=== PATIENT | female | born 1960 | race Caucasian/White ===

== ENCOUNTER 2018-09-04 17:10 | Outpatient (REF) | payer MEDICAID, SELFPAY ==
[2018-09-04 22:18] LABS: Iron 57 ug/dL (50-175); Total Iron Binding Capacity 271 ug/dL (250-450); Transferrin Sat 21 % (15-50)
[2018-09-04 22:22] LABS: Abs Immature Grans 0.02 k/cumm (0.0-0.09); Absolute Basophil Count 0.04 k/cumm (0.0-0.2); Absolute Eosinophil Count 0.31 k/cumm (0.0-0.7); Absolute Lymphocyte Count 2.68 k/cumm (1.2-3.4); Absolute Monocyte Count 0.76 k/cumm (0.11-0.7); Absolute Neutrophil Count 5.01 k/cumm (1.2-6.7); Basophils % 0.5; Eosinophils % 3.5; HCT 44.6 % (36.0-46.0); HGB 14.5 g/dL (12.0-15.5); Immature Grans % 0.2; Lymphocytes % 30.4; Mean Corp. HGB Concentration 32.5 g/dL (32.0-36.0); Mean Corpuscular Hemoglobin 28.2 pg (27.0-33.0); Mean Corpuscular Volume 86.8 fL (80-95); Mean Platelet Volume 11.2 fL (8.0-11.0); Monocytes % 8.6; Neutrophils % 56.8; Platelet Count 341 x1000/uL (130-400); RBC 5.14 m/cumm (4.00-5.20); White Blood Cell Count 8.82 k/cumm (4.4-10.8)
[2018-09-04 23:02] LABS: Anion Gap 10.3 mmol/L (3-11); BUN 17 mg/dL (7-18); CO2 27.7 mmol/L (21.0-32.0); CREATININE 0.66 mg/dL (0.55-1.02); Calcium 9.7 mg/dL (8.5-10.1); Chloride 105 mmol/L (98-107); Ferritin 171 ng/mL (8-388); Glucose 93 mg/dL (70-100); Potassium 4.3 mmol/L (3.5-5.1); Sodium 143 mmol/L (136-145); TSH (W/Ref FT4) 1.26 uIU/mL (0.358-3.74)
== END 2018-09-04 17:30 ==
LOC: NCHCN 17:10
PROVIDERS: Visit Provider Nurse Practitioner Family
DX: R03.0 Elevated blood-pressure reading, without diagnosis of hypertension (principal); R51 Headache
CPT/HCPCS: 80048; 82728; 83540; 83550; 84443; 85025

== ENCOUNTER 2018-09-07 09:14 | Outpatient (CLI) | payer MEDICAID, SELFPAY ==
[2018-09-07 10:54] LABS: Carboxyhemoglobin 1.1 %
== END 2018-09-07 09:34 ==
PROVIDERS: PCP Nurse Practitioner Family; Visit Provider Nurse Practitioner Family
DX: R03.0 Elevated blood-pressure reading, without diagnosis of hypertension (principal); R51 Headache; R94.5 Abnormal results of liver function studies
CPT/HCPCS: 36415; 80053; 82375; 86803; 85025

== ENCOUNTER 2019-04-24 10:37 | Outpatient (REF) | payer BC, SELFPAY ==
[2019-04-24 12:50] LABS: Abs Immature Grans 0.02 k/cumm (0.0-0.09); Absolute Basophil Count 0.05 k/cumm (0.0-0.2); Absolute Eosinophil Count 0.27 k/cumm (0.0-0.7); Absolute Lymphocyte Count 2.61 k/cumm (1.2-3.4); Absolute Monocyte Count 0.47 k/cumm (0.11-0.7); Absolute Neutrophil Count 4.86 k/cumm (1.2-6.7); Basophils % 0.6; Eosinophils % 3.3; HCT 43.2 % (36.0-46.0); HGB 13.9 g/dL (12.0-15.5); Immature Grans % 0.2; Lymphocytes % 31.5; Mean Corp. HGB Concentration 32.2 g/dL (32.0-36.0); Mean Corpuscular Hemoglobin 28.3 pg (27.0-33.0); Monocytes % 5.7; Neutrophils % 58.7; Platelet Count 327 x1000/uL (130-400); RBC 4.91 m/cumm (4.00-5.20); RBC Distribution Width 13.5 % (11.7-14.6); White Blood Cell Count 8.28 k/cumm (4.4-10.8)
[2019-04-24 13:13] LABS: Iron 70 ug/dL (50-175); Total Iron Binding Capacity 248 ug/dL (250-450); Transferrin Sat 28 % (15-50)
[2019-04-24 13:14] LABS: ALT 46 U/L (12-78); AST 18 U/L (15-37); Albumin 3.8 g/dL (3.4-5.0); Alkaline Phosphatase 103 U/L (46-116); Anion Gap 7.5 mmol/L (3-11); BUN 15 mg/dL (7-18); Bilirubin, Total 0.3 mg/dL (0.2-1.0); CO2 29.5 mmol/L (21.0-32.0); Calcium 9.3 mg/dL (8.5-10.1); Chloride 105 mmol/L (98-107); Glucose 80 mg/dL (70-100); Potassium 4.2 mmol/L (3.5-5.1); Sodium 142 mmol/L (136-145); Total Protein 6.7 g/dL (6.4-8.2)
== END 2019-04-24 10:57 ==
LOC: NCHCN 10:37
PROVIDERS: PCP Nurse Practitioner Family; Visit Provider Nurse Practitioner Family
DX: I10 Essential (primary) hypertension (principal); R73.03 Prediabetes; E16.2 Hypoglycemia, unspecified; K76.0 Fatty (change of) liver, not elsewhere classified; K92.1 Melena; J45.40 Moderate persistent asthma, uncomplicated; E66.9 Obesity, unspecified; M25.552 Pain in left hip
CPT/HCPCS: 80053; 83540; 83550; 85025

== ENCOUNTER 2021-07-20 03:01 | Outpatient (CLI) | payer BC, SELFPAY ==
[2021-07-20 11:17] LABS: Abs Immature Grans 0.03 10^3/uL (0.0-0.06); Absolute Basophil Count 0.07 10^3/uL (0.0-0.2); Absolute Eosinophil Count 0.34 10^3/uL (0.0-0.7); Absolute Lymphocyte Count 2.31 10^3/uL (1.2-3.4); Absolute Monocyte Count 0.44 10^3/uL (0.1-0.8); Absolute Neutrophil Count 5.08 10^3/uL (1.2-6.7); Basophils % 0.8; Eosinophils % 4.1; HCT 44.7 % (36.0-46.0); HGB 14.3 g/dL (11.2-15.7); Immature Grans % 0.4; Lymphocytes % 27.9; MCH 28.1 pg (27.0-33.0); MPV 10.4 fL (8.0-11.0); Monocytes % 5.3; Neutrophils % 61.5; Nucleated RBC 0 %; Platelet Count 314 10^3/uL (130-400); RBC 5.08 10^6/uL (3.93-5.22); RDW 13.1 % (11.7-14.6); RDW-SD 42.4 fL; WBC 8.27 10^3/uL (4.4-10.8)
[2021-07-20 11:34] LABS: PTT Activated 25.5 sec (21.0-27.5); Prothrombin Time 10.4 sec (9.3-11.0)
[2021-07-20 12:17] LABS: ALT 37 U/L (14-59); AST 16 U/L (15-37); Albumin 3.9 g/dL (3.4-5.0); Alkaline Phosphatase 102 U/L (46-116); BUN 16 mg/dL (7-18); Bilirubin, Total 0.4 mg/dL (0.2-1.0); CREATININE 0.8 mg/dL (0.55-1.02); Calcium 9.3 mg/dL (8.5-10.1); Chloride 104 mmol/L (98-107); Glucose 127 mg/dL (74-106); Sodium 142 mmol/L (136-145); TSH (W/Ref FT4) 1.43 uIU/mL (0.36-3.74); Total Protein 7.1 g/dL (6.4-8.2)
[2021-07-21 09:25] LABS: Magnesium 2.2 mg/dL (1.8-2.4); Vitamin B12 480 pg/mL (193-986)
[2021-07-21 16:09] LABS: Calculated LDL 167 mg/dL (<100); Cholesterol 242 mg/dL (<200); HDL Cholesterol 52 mg/dL (40-60); Triglyceride 115 mg/dL (<150)
== END 2021-07-20 03:02 | disposition home or self-care (01) ==
LOC: LBO 03:01
PROVIDERS: PCP Nurse Practitioner Family; Visit Provider Nurse Practitioner Family
DX: Z13.220 Encounter for screening for lipoid disorders (principal); R73.03 Prediabetes; I10 Essential (primary) hypertension; E16.2 Hypoglycemia, unspecified; K76.0 Fatty (change of) liver, not elsewhere classified; R07.9 Chest pain, unspecified; R51.9 Headache, unspecified; J45.40 Moderate persistent asthma, uncomplicated
CPT/HCPCS: 36415; 80053; 80061; 82607; 83036; 83735; 84443; 85025; 85610; 85730

== ENCOUNTER 2021-08-06 13:54 | Outpatient (REF) | payer BC, SELFPAY ==
[2021-08-06 21:25] LABS: Anion Gap 6.4 mmol/L (3-11); BUN 18 mg/dL (7-18); CO2 30.6 mmol/L (21.0-32.0); CREATININE 0.7 mg/dL (0.55-1.02); Calcium 9.7 mg/dL (8.5-10.1); Chloride 106 mmol/L (98-107); Glucose 92 mg/dL (74-106); Potassium 5.3 mmol/L (3.5-5.1); Sodium 143 mmol/L (136-145)
== END 2021-08-06 13:55 | disposition home or self-care (01) ==
LOC: NCHCN 13:54
PROVIDERS: PCP Nurse Practitioner Family; Visit Provider Nurse Practitioner Family
DX: I10 Essential (primary) hypertension (principal); E78.5 Hyperlipidemia, unspecified
CPT/HCPCS: 80048

== ENCOUNTER 2021-08-20 17:03 | Outpatient (REF) | payer BC, SELFPAY ==
[2021-08-20 21:17] LABS: Anion Gap 11.9 mmol/L (3-11); BUN 16 mg/dL (7-18); CO2 25.1 mmol/L (21.0-32.0); CREATININE 0.7 mg/dL (0.55-1.02); Calcium 9.1 mg/dL (8.5-10.1); Chloride 106 mmol/L (98-107); Glucose 98 mg/dL (74-106); Potassium 4.4 mmol/L (3.5-5.1); Sodium 143 mmol/L (136-145)
== END 2021-08-20 17:04 | disposition home or self-care (01) ==
LOC: NCHCN 17:03
PROVIDERS: PCP Nurse Practitioner Family; Visit Provider Nurse Practitioner Family
DX: I10 Essential (primary) hypertension (principal); E87.5 Hyperkalemia; E78.5 Hyperlipidemia, unspecified
CPT/HCPCS: 80048

== ENCOUNTER 2021-11-05 01:57 | Outpatient (CLI) | payer BC, SELFPAY ==
--- NOTE | 2021-11-05 | DI.CT_ITS ---
Exam(s) CT CHEST W EXAM: CT CHEST W CLINICAL HISTORY: EVALUATE MEDIASTINAL MASS FOUND ON STRESS TEST CT,R22.2 TECHNIQUE: CT examination of the chest was performed with intravenous infusion of 100 cc of Omnipaqu e 350. COMPARISON: No exams were available for comparison FINDINGS: The lungs are predominantly clear. There is a noncalcified rounded left lower lobe 4 millimeter mean diameter intrapulmonary nodule period. There is no evidence of pleural effusion. There is no evidence of pulmonary embolic disease. There is unremarkable appearance of the thoracic aorta and major branches with no evidence of aneurysm or dissection. There is no mediastinal or hilar adenopathy. Tracheobronchial tree appears intact. There is a multi lobulated mass of the anterior mediastinum superiorly, this slightly deforms the left brachiocephali c vein. This lesion measures up to about 4.3 x 3.3 cm in maximal diameter on transaxial imaging. At tenuation measurements are predominantly of fluid range, approximately -5 Hounsfield units to 16 Houn sfield units. 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 Cystic thymic neopl asm is not excluded on the basis of this examination. Correlation with MR evaluation including post contrast imaging is requested to rule out mural nodules, wall thickening, or wall enhancement of the lesion. No axillary or supraclavicular adenopathy. Visualized portions of the liver, spleen, adrenals, and kidneys are unremarkable. No abnormality seen involving the bony thorax. 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 Cystic thymi c neoplasm not excluded, additional evaluation with MRI is recommended as described above.. RADIATION DOSE DELIVERED: 584.19mGy.cm Total DLP 584.19mGy.cm Total DLP CTDIvol
[2021-11-05] MEDS: Omnipaque 350 MG/ML 100 ML BTL IJ (08:32)
== END 2021-11-05 02:17 ==
LOC: DI 01:57
PROVIDERS: PCP Nurse Practitioner Family; Visit Provider Nurse Practitioner Family
DX: R91.1 Solitary pulmonary nodule (principal); J98.59 Other diseases of mediastinum, not elsewhere classified
CPT/HCPCS: 71260; J3490

== ENCOUNTER 2021-12-02 01:02 | Outpatient (CLI) | payer BC, SELFPAY ==
--- NOTE | 2021-12-02 11:10 | DI.RAD_ITS ---
Exam(s) XR HAND RT COMPLETE XR WRIST RT COMPLETE EXAM: XR HAND RT COMPLETE CLINICAL HISTORY: RT WRIST PAIN,M25.531 TECHNIQUE: COMPARISON: CR LEFT LITTLE FINGER from 11/10/2012 CR XR WRIST RT COMPLETE from 12/02/2021 FINDINGS: Three views of the wrist and three views of the hand were obtained. There is a slight ulnar minus va riance. Otherwise carpal alignment is grossly within normal limits. There are degenerative changes of the joints of the carpus, most prominent involving the navicular multangular joints and the greate r multangular 1st metacarpal joint. There are moderate degenerative changes of the IP joints of the hand. There is no evidence of acute fracture or dislocation. IMPRESSION: Degenerative changes as described above. No evidence of acute process. RADIATION DOSE DELIVERED: Total DLP
== END 2021-12-02 01:22 ==
LOC: DI 01:02
PROVIDERS: PCP Nurse Practitioner Family; Visit Provider Nurse Practitioner Family
DX: M25.531 Pain in right wrist (principal); M19.041 Primary osteoarthritis, right hand; M19.031 Primary osteoarthritis, right wrist
CPT/HCPCS: 73110; 73130

== ENCOUNTER 2022-02-26 02:14 | Outpatient (CLI) | payer BC, SELFPAY ==
--- NOTE | 2022-03-09 09:31 | W.PFT ---
Date of service: 02/26/22 Time of Service: 10:10 Pulmonary Function Test Result Requesting Provider Cameron Archer Indications: Pre-operative assessment Interpretation Spirometry: There is no airflow limitation. Lung Volumes: Normal lung volumes. Diffusion Capacity: Normal diffusion. Airway Pressure: Normal airways resistance. Impression Normal pulmonary function testing Clinical Correlation therefore is recommended.
== END 2022-02-26 02:15 | disposition home or self-care (01) ==
LOC: RT 02:14
PROVIDERS: PCP Nurse Practitioner Family; Visit Provider Surgery
DX: J98.59 Other diseases of mediastinum, not elsewhere classified (principal); R06.02 Shortness of breath; Z01.818 Encounter for other preprocedural examination
CPT/HCPCS: 94726; 94729; 94010

== ENCOUNTER 2022-05-03 13:00 | Outpatient (REF) | payer BC, SELFPAY | END 2022-05-03 13:01 | disposition home or self-care (01) | LOC: NCHCN 13:00 | PROVIDERS: PCP Nurse Practitioner Family; Visit Provider Nurse Practitioner Family | DX: N39.0 Urinary tract infection, site not specified (principal) | CPT/HCPCS: 87086 ==

== ENCOUNTER 2022-07-15 02:50 | Outpatient (CLI) | payer MEDICAID, SELFPAY ==
--- NOTE | 2022-07-15 11:00 | NS.NUTBLAN_ITS ---
Poonam returns for dietary counseling for pre diabetes and glycemic variability after meals. Reviewed continuous glucose monitoring device results from last month that indicates good overall glycemic control but big jumps in blood sugar, as much as 80 points in less than an hour. Poonam is here for another monitor (have free samples) in order to learn more about how her body processes meals and reacts to exercise. Poonam has been struggling to lose weight as often her meals are low in calories and her blood sugars fall. Exercise has also been a struggle as she gets shaky after a 2 mile walk. Session today focused on how to plan meals that are balanced in carbs, protein and healthy fats for optimal digestion and blood sugar control. Reviewed when she should exercise after a meal and how to replete if exercise is strenuous. Will forward CGM data to [employer] per Poonam's request. WIll follow up in next 10 days by phone.
== END 2022-07-15 02:51 | disposition home or self-care (01) ==
LOC: DS 02:50
PROVIDERS: PCP Nurse Practitioner Family; Visit Provider Dietitian, Registered
DX: R73.03 Prediabetes (principal)
CPT/HCPCS: 97803

== ENCOUNTER 2022-09-10 16:13 | Outpatient (REF) | payer MEDICAID, SELFPAY ==
[2022-09-10 21:26] LABS: Bacteria Few HPF (Negative); Casts Negative LPF (Negative); Crystals Moderate Amorphous HPF (Negative); Epithelial Cells Few HPF (Negative); Mucus Negative (Negative); RBC 0-2 HPF (0-2)
[2022-09-10 21:27] LABS: C & S Indicated? C&S Done As Ordered
== END 2022-09-10 16:14 | disposition home or self-care (01) ==
LOC: LBN 16:13
PROVIDERS: PCP Nurse Practitioner Family; Visit Provider Physician Assistant Medical
DX: R31.9 Hematuria, unspecified (principal)
CPT/HCPCS: 81015; 87086

== ENCOUNTER 2022-10-21 13:21 | Outpatient (REF) | payer MEDICAID, SELFPAY ==
[2022-10-21 14:51] LABS: HCT 44.2 % (36.0-46.0); HGB 14.2 g/dL (11.2-15.7); MCHC 32.1 % (32.0-36.0); MCV 87 fL (80-95); MPV 10.6 fL (8.0-11.0); Platelet Count 399 10^3/uL (130-400); RBC 5.08 10^6/uL (3.93-5.22); RDW 13.2 % (11.7-14.6); RDW-SD 41.9 fL; WBC 12.39 10^3/uL (4.4-10.8)
[2022-10-21 15:08] LABS: ALT 26 U/L (14-59); AST 16 U/L (15-37); Albumin 3.6 g/dL (3.4-5.0); Alkaline Phosphatase 87 U/L (46-116); Anion Gap 6.5 mmol/L (3-11); BUN 14 mg/dL (7-18); Bilirubin, Total 0.4 mg/dL (0.2-1.0); CO2 29.5 mmol/L (21.0-32.0); CREATININE 0.7 mg/dL (0.55-1.02); Calcium 9.4 mg/dL (8.5-10.1); Chloride 104 mmol/L (98-107); Estimated GFR 98.95 (mL/min/1.73m2); Glucose 104 mg/dL (74-106); Lipase 89 U/L (73-393); Potassium 4.1 mmol/L (3.5-5.1); Sodium 140 mmol/L (136-145); Total Protein 6.6 g/dL (6.4-8.2)
== END 2022-10-21 13:22 | disposition home or self-care (01) ==
LOC: NCHCN 13:21
PROVIDERS: PCP Nurse Practitioner Family; Visit Provider Family Medicine
DX: R19.7 Diarrhea, unspecified (principal); R10.9 Unspecified abdominal pain; K90.9 Intestinal malabsorption, unspecified
CPT/HCPCS: 80053; 83690; 85027

== ENCOUNTER 2023-10-13 13:37 | Outpatient (REF) | payer MEDICAID, SELFPAY ==
[2023-10-13 21:22] LABS: Abs Immature Grans 0.02 10^3/uL (0.0-0.06); Absolute Basophil Count 0.11 10^3/uL (0.0-0.2); Absolute Lymphocyte Count 2.52 10^3/uL (1.2-3.4); Absolute Monocyte Count 0.51 10^3/uL (0.1-0.8); Absolute Neutrophil Count 4.68 10^3/uL (1.2-6.7); Basophils % 1.3; Eosinophils % 4.9; HCT 44.7 % (36.0-46.0); HGB 14.5 g/dL (11.2-15.7); Immature Grans % 0.2; Lymphocytes % 30.6; MCH 28.3 pg (27.0-33.0); MCHC 32.4 % (32.0-36.0); MCV 87 fL (80-95); MPV 10.9 fL (8.0-11.0); Monocytes % 6.2; Neutrophils % 56.8; Platelet Count 345 10^3/uL (130-400); RBC 5.13 10^6/uL (3.93-5.22); RDW 13.2 % (11.7-14.6); RDW-SD 42.3 fL; WBC 8.24 10^3/uL (4.4-10.8)
[2023-10-13 21:45] LABS: ALT 38 U/L (14-59); AST 19 U/L (15-37); Albumin 3.9 g/dL (3.4-5.0); Alkaline Phosphatase 100 U/L (46-116); Anion Gap 9.4 mmol/L (3-11); BUN 17 mg/dL (7-18); Bilirubin, Total 0.4 mg/dL (0.2-1.0); CO2 25.6 mmol/L (21.0-32.0); CREATININE 0.6 mg/dL (0.55-1.02); Calcium 9.4 mg/dL (8.5-10.1); Calculated LDL 165 mg/dL (<100); Chloride 105 mmol/L (98-107); Cholesterol 245 mg/dL (<200); Estimated GFR 102.06 (mL/min/1.73m2); Glucose 95 mg/dL (74-106); HDL Cholesterol 60 mg/dL (40-60); Potassium 4.6 mmol/L (3.5-5.1); Sodium 140 mmol/L (136-145); Triglyceride 104 mg/dL (<150)
[2023-10-13 22:04] LABS: Vitamin D 25 Total 5.8 ng/mL (30-100)
[2023-10-14 20:12] LABS: HIV-1/2 Ag & Ab Screen Negative (Negative)
== END 2023-10-13 13:38 | disposition home or self-care (01) ==
LOC: NCHCN 13:37
PROVIDERS: PCP Nurse Practitioner Family; Visit Provider Nurse Practitioner Family
DX: I10 Essential (primary) hypertension (principal); K76.0 Fatty (change of) liver, not elsewhere classified; M85.88 Other specified disorders of bone density and structure, other site; Z11.4 Encounter for screening for human immunodeficiency virus [HIV]
CPT/HCPCS: 80053; 80061; 82306; 87389; 85025

== ENCOUNTER 2023-12-26 16:47 | Outpatient (REF) | payer MEDICAID, SELFPAY | END 2023-12-26 16:48 | disposition home or self-care (01) | LOC: NCHCN 16:47 | PROVIDERS: PCP Nurse Practitioner Family; Visit Provider Nurse Practitioner Family | DX: R31.9 Hematuria, unspecified (principal) | CPT/HCPCS: 87086 ==

== ENCOUNTER 2024-10-25 12:11 | Outpatient (REF) | payer MEDICAID, SELFPAY ==
[2024-10-25 20:49] LABS: Abs Immature Grans 0.02 10^3/uL (0.0-0.06); Absolute Basophil Count 0.11 10^3/uL (0.0-0.2); Absolute Eosinophil Count 0.29 10^3/uL (0.0-0.7); Absolute Lymphocyte Count 2.15 10^3/uL (1.2-3.4); Absolute Monocyte Count 0.58 10^3/uL (0.1-0.8); Absolute Neutrophil Count 4.28 10^3/uL (1.2-6.7); Basophils % 1.5 %; Eosinophils % 3.9 %; HCT 46.6 % (36.0-46.0); Immature Grans % 0.3 %; Lymphocytes % 28.9 %; MCH 28.2 pg (27.0-33.0); MCHC 32.2 % (32.0-36.0); MCV 88 fL (80-95); MPV 11.2 fL (8.0-11.0); Monocytes % 7.8 %; Neutrophils % 57.6 %; Platelet Count 343 10^3/uL (130-400); RBC 5.32 10^6/uL (3.93-5.22); RDW 13.2 % (11.7-14.6); RDW-SD 42.2 fL; WBC 7.43 10^3/uL (4.4-10.8)
[2024-10-25 21:00] LABS: Bilirubin Negative (Negative); Blood Negative (Negative); Clarity Cloudy (Clear); Glucose Negative (Negative); Ketones Negative (Negative); Leukocyte Esterase Negative (Negative); Nitrite Negative (Negative); Specific Gravity >= 1.030 (1.005-1.025); Urobilinogen 0.2 mg/dL (Up to 0.2); pH 5.5 (5-8)
[2024-10-25 21:16] LABS: COMMENT (LAB VIEW ONLY) 239.59 mg/dL; Microalb ug/mg Crea 4.6 ug/mg Cr
[2024-10-25 21:41] LABS: ALT 39 U/L (14-59); AST 18 U/L (15-37); Albumin 4.2 g/dL (3.4-5.0); Alkaline Phosphatase 112 U/L (46-116); Anion Gap 6.2 mmol/L (3-11); BUN 15 mg/dL (7-18); Bilirubin, Total 0.38 mg/dL (0.2-1.0); CO2 31.8 mmol/L (21.0-32.0); CREATININE 0.8 mg/dL (0.55-1.02); Calcium 9.9 mg/dL (8.5-10.1); Calculated LDL 133 mg/dL (<100); Chloride 106 mmol/L (98-107); Cholesterol 223 mg/dL (<200); Estimated GFR 83.26 (mL/min/1.73m2); Glucose 83 mg/dL (74-106); HDL Cholesterol 60 mg/dL (40-60); Potassium 5.2 mmol/L (3.5-5.1); Sodium 144 mmol/L (136-145); Total Protein 7.2 g/dL (6.4-8.2); Triglyceride 153 mg/dL (<150); Vitamin D 25 Total 27.6 ng/mL (30-100)
== END 2024-10-25 12:12 | disposition home or self-care (01) ==
LOC: NCHCN 12:11
PROVIDERS: PCP Nurse Practitioner Family; Visit Provider Nurse Practitioner Family
DX: I10 Essential (primary) hypertension (principal); E78.5 Hyperlipidemia, unspecified; K76.0 Fatty (change of) liver, not elsewhere classified; M81.0 Age-related osteoporosis without current pathological fracture
CPT/HCPCS: 80053; 80061; 82306; 81003; 82043; 82570; 85025

== ENCOUNTER 2025-01-30 12:15 | Outpatient (REF) | payer MEDICAID, SELFPAY ==
[2025-01-30 14:08] LABS: Abs Immature Grans 0.01 10^3/uL (0.0-0.06); Absolute Basophil Count 0.09 10^3/uL (0.0-0.2); Absolute Eosinophil Count 0.29 10^3/uL (0.0-0.7); Absolute Lymphocyte Count 2.12 10^3/uL (1.2-3.4); Absolute Monocyte Count 0.57 10^3/uL (0.1-0.8); Absolute Neutrophil Count 4.02 10^3/uL (1.2-6.7); Basophils % 1.3 %; Eosinophils % 4.1 %; HCT 44.3 % (36.0-46.0); HGB 14.3 g/dL (11.2-15.7); Immature Grans % 0.1 %; Lymphocytes % 29.9 %; MCH 28.6 pg (27.0-33.0); MCHC 32.3 % (32.0-36.0); MCV 89 fL (80-95); MPV 10.7 fL (8.0-11.0); Neutrophils % 56.6 %; Platelet Count 329 10^3/uL (130-400); RDW 13.1 % (11.7-14.6); RDW-SD 42.3 fL
[2025-01-30 14:38] LABS: Anion Gap 3.3 mmol/L (3-11); BUN 17 mg/dL (7-18); CO2 32.7 mmol/L (21.0-32.0); CREATININE 0.7 mg/dL (0.55-1.02); Calcium 9.9 mg/dL (8.5-10.1); Chloride 105 mmol/L (98-107); Estimated GFR 97.12 (mL/min/1.73m2); Glucose 83 mg/dL (74-106); Potassium 4.7 mmol/L (3.5-5.1); Sodium 141 mmol/L (136-145); Vitamin D 25 Total 26 ng/mL (30-100)
== END 2025-01-30 12:16 | disposition home or self-care (01) ==
LOC: NCHCN 12:15
PROVIDERS: PCP Nurse Practitioner Family; Visit Provider Nurse Practitioner Family
DX: I10 Essential (primary) hypertension (principal); D75.1 Secondary polycythemia; E55.9 Vitamin D deficiency, unspecified
CPT/HCPCS: 80048; 82306; 85025

== ENCOUNTER 2025-06-13 15:07 | Outpatient (REF) | payer MEDICAID, SELFPAY ==
[2025-06-13 22:04] LABS: Vitamin B12 > 2000 pg/mL (193-986)
== END 2025-06-13 15:08 | disposition home or self-care (01) ==
LOC: NCHCN 15:07
PROVIDERS: PCP Nurse Practitioner Family; Visit Provider Nurse Practitioner Family
DX: R20.2 Paresthesia of skin (principal)
CPT/HCPCS: 82607